=== PATIENT | female | born 1930 | race Hispanic/Latino ===

== ENCOUNTER 2018-05-03 11:32 | Inpatient (IN) | payer BC ==
[~2018-05-03] VITALS: Ht 160 cm; Wt 82.2 kg
[~2018-05-03 11:32] MED LIST: APIX5TAB PO; DEXA4TAB PO; ESOM40CA PO; Folic Acid PO; GABA300S PO; LEVO500T2 PO; LORA10TA7 PO; LOSA50TA2 PO; LUBI24CA2 PO; MEGE400O4 PO; MEMA10TA20 PO; ONDA8TAB5 PO; ROSU10TA27 PO; TRAM-355 PO; TRAZ-185 PO; VORT10TA PO
[2018-05-03 12:27] LABS: BASOPHILS % (AUTO) 0.2 % (0.0-5.0); EOSINOPHILS % (AUTO) 0.2 % (0.0-8.0); HEMATOCRIT 32.4 % (36-48); LYMPHOCYTES % (AUTO) 7.5 % (21.0-51.0); MEAN CORPUSCULAR HEMOGLOBIN 29.9 pg (27.0-33.0); MEAN CORPUSCULAR HGB CONC 32.9 g/dL (32.0-36.0); MEAN CORPUSCULAR VOLUME 90.7 fL (79-99); MONOCYTES % (AUTO) 6.8 % (3.0-13.0); NEUTROPHILS % (AUTO) 85.3 % (40.0-77.0); PLATELET COUNT (AUTO) 205 K/uL (130-400); RED BLOOD CELL COUNT(AUTO) 3.57 MIL/uL (4.00-5.50); RED CELL DISTRIBUTION WIDTH 14.5 % (11.0-15.5); WHITE BLOOD COUNT (AUTO) 6.5 K/uL (4.8-10.8)
[2018-05-03 12:34] LABS: POTASSIUM 3.7 mmol/L (3.5-5.1)
[2018-05-03 12:38] LABS: ALBUMIN 1.8 g/dL (3.5-5.0); BILIRUBIN,TOTAL 0.5 mg/dL (0.2-1.0); TOTAL PROTEIN, SERUM 5.8 g/dL (6.0-8.3)
[2018-05-03 15:41] VITALS: BP 129/61
[2018-05-03 19:00] VITALS: BP 137/64
[2018-05-03] MEDS ORDERED: SUVO10TA PO (19:58)
[2018-05-03] MEDS: DRONABINOL 2.5 MG CAP PO SCH (22:08)
[2018-05-03] MEDS: SODIUM CHLORIDE 0.9% 1000ML 1,000 ML IV SCH (22:09)
[2018-05-03] MEDS: HYDROCODONE/ACETAMINOPHEN 5/325 MG TAB PO PRN (22:12)
[2018-05-03 22:49] LABS: APPEARANCE,URINE Clear (CLEAR); BILIRUBIN,URINE Negative (NEGATIVE); GLUCOSE, URINE (UA) Negative (NEGATIVE); KETONES,URINE Trace mg/dL (NEGATIVE); LEUKOCYTE ESTERASE ,URINE Negative (NEGATIVE); NITRATE,URINE Negative (NEGATIVE); OCCULT BLOOD,URINE Negative (NEGATIVE); PROTEIN,URINE Negative (NEGATIVE)
[2018-05-03 22:59] LABS: COLOR,URINE YELLOW (YELLOW)
[2018-05-03 23:10] LABS: BACTERIA,URINE Rare /HPF (None Seen); RBC,URINE None Seen /HPF (0-1); WBC,URINE None Seen /HPF (0-1)
[2018-05-03 23:11] LABS: MUCUS,URINE Rare LPF (None Seen)
[2018-05-04] VITALS: BP 126/53
[2018-05-04 04:00] VITALS: BP 149/72
[2018-05-04 05:24] LABS: BASOPHILS % (AUTO) 0.3 % (0.0-5.0); EOSINOPHILS % (AUTO) 0.2 % (0.0-8.0); HEMATOCRIT 25.7 % (36-48); LYMPHOCYTES % (AUTO) 17.2 % (21.0-51.0); MEAN CORPUSCULAR HEMOGLOBIN 30.2 pg (27.0-33.0); MEAN CORPUSCULAR HGB CONC 33.5 g/dL (32.0-36.0); MONOCYTES % (AUTO) 8.8 % (3.0-13.0); NEUTROPHILS % (AUTO) 73.5 % (40.0-77.0); PLATELET COUNT (AUTO) 228 K/uL (130-400); RED BLOOD CELL COUNT(AUTO) 2.86 MIL/uL (4.00-5.50); RED CELL DISTRIBUTION WIDTH 14.7 % (11.0-15.5); WHITE BLOOD COUNT (AUTO) 4.5 K/uL (4.8-10.8)
[2018-05-04 05:41] LABS: CREATININE 0.8 mg/dL (0.5-1.5); POTASSIUM 3.6 mmol/L (3.5-5.1)
[2018-05-04] MEDS: PANTOPRAZOLE SODIUM 40 MG TABLET.DR PO SCH (08:22)
[2018-05-04] MEDS: HYDROCODONE/ACETAMINOPHEN 5/325 MG TAB PO PRN ×2 (08:23→22:04)
[2018-05-04] MEDS: LUBIPROSTONE 24 MCG CAP PO SCH ×2 (08:23→16:52)
[2018-05-04] MEDS: FOLIC ACID 1 MG TABLET PO SCH (08:23)
[2018-05-04 08:46] VITALS: BP 151/63
[2018-05-04] MEDS ORDERED: PANTOPRAZOLE SODIUM 40 MG TABLET.DR PO SCH (09:00)
[2018-05-04] MEDS ORDERED: ENOXAPARIN SODIUM 40 MG/0.4 ML SYRINGE SQ SCH (09:00)
[2018-05-04] MEDS: DRONABINOL 2.5 MG CAP PO SCH ×3 (10:24→22:02)
[2018-05-04] MEDS: BACLOFEN 10 MG TABLET PO SCH ×4 (11:40→21:00)
[2018-05-04] MEDS ORDERED: POTASSIUM CHLORIDE 10MEQ/100ML 100 ML IV PRN (12:00)
[2018-05-04] MEDS ORDERED: LIDOCAINE HCL-MPF 1% 2ML VIAL IVP PRN (12:00)
[2018-05-04] MEDS ORDERED: POTASSIUM CHLORIDE 10% ELIXIR 20 MEQ/15 ML UDCUP PO PRN (12:00)
[2018-05-04 12:11] VITALS: BP 142/66
[2018-05-04] MEDS: SODIUM CHLORIDE 0.9% 1000ML 1,000 ML IV SCH (14:08)
[2018-05-04] MEDS: LIDOCAINE 5% TOPICAL PATCH TP SCH (14:09)
[2018-05-04] MEDS: POTASSIUM CHLORIDE 20 MEQ ERTAB PO PRN ×2 (15:13→17:41)
[2018-05-04 16:10] VITALS: BP 134/60
[2018-05-04 19:00] VITALS: BP 160/69
[2018-05-05] VITALS: BP 115/53
[2018-05-05 04:00] VITALS: BP 102/50
[2018-05-05 05:05] LABS: BASOPHILS % (AUTO) 0.2 % (0.0-5.0); EOSINOPHILS % (AUTO) 0.2 % (0.0-8.0); HEMATOCRIT 25.9 % (36-48); LYMPHOCYTES % (AUTO) 16.3 % (21.0-51.0); MEAN CORPUSCULAR HEMOGLOBIN 29.9 pg (27.0-33.0); MEAN CORPUSCULAR HGB CONC 33.5 g/dL (32.0-36.0); MEAN CORPUSCULAR VOLUME 89.4 fL (79-99); NEUTROPHILS % (AUTO) 74.3 % (40.0-77.0); PLATELET COUNT (AUTO) 225 K/uL (130-400); RED CELL DISTRIBUTION WIDTH 14.7 % (11.0-15.5); WHITE BLOOD COUNT (AUTO) 4.9 K/uL (4.8-10.8)
[2018-05-05 05:19] LABS: CREATININE 0.9 mg/dL (0.5-1.5); POTASSIUM 3.5 mmol/L (3.5-5.1)
[2018-05-05] MEDS: SODIUM CHLORIDE 0.9% 1000ML 1,000 ML IV SCH (06:20)
[2018-05-05] MEDS ORDERED: BACLOFEN 10 MG TABLET PO PRN (07:30)
[2018-05-05 08:00] VITALS: BP 141/76
[2018-05-05] MEDS: PANTOPRAZOLE SODIUM 40 MG TABLET.DR PO SCH (09:47)
[2018-05-05] MEDS: FOLIC ACID 1 MG TABLET PO SCH (09:47)
[2018-05-05] MEDS: DRONABINOL 2.5 MG CAP PO SCH ×3 (09:47→21:30)
[2018-05-05] MEDS: LUBIPROSTONE 24 MCG CAP PO SCH ×2 (09:48→16:34)
[2018-05-05] MEDS: LIDOCAINE 5% TOPICAL PATCH TP SCH (09:49)
[2018-05-05] MEDS: HYDROCODONE/ACETAMINOPHEN 5/325 MG TAB PO PRN ×2 (10:54→21:30)
[2018-05-05 11:00] VITALS: BP 130/82
[2018-05-05] MEDS ORDERED: FENTANYL 25 MCG/HR PATCH TD SCH (11:15)
[2018-05-05] MEDS ORDERED: ALPRAZOLAM 0.5 MG TABLET PO PRN (12:15)
[2018-05-05 16:00] VITALS: BP 149/65
[2018-05-05 19:00] VITALS: BP 153/74
[2018-05-06] MEDS: SODIUM CHLORIDE 0.9% 1000ML 1,000 ML IV SCH ×2 (02:51→16:27)
[2018-05-06 04:00] VITALS: BP 127/65
[2018-05-06 06:02] LABS: BASOPHILS % (AUTO) 0.2 % (0.0-5.0); EOSINOPHILS % (AUTO) 0.2 % (0.0-8.0); LYMPHOCYTES % (AUTO) 15.7 % (21.0-51.0); MEAN CORPUSCULAR HEMOGLOBIN 30.4 pg (27.0-33.0); MEAN CORPUSCULAR HGB CONC 34.1 g/dL (32.0-36.0); MEAN CORPUSCULAR VOLUME 89.2 fL (79-99); MONOCYTES % (AUTO) 9.6 % (3.0-13.0); NEUTROPHILS % (AUTO) 74.3 % (40.0-77.0); NUCLEATED RED BLOOD CELLS 0.1 % (0.0-0.19); PLATELET COUNT (AUTO) 250 K/uL (130-400); RED CELL DISTRIBUTION WIDTH 14.8 % (11.0-15.5); WHITE BLOOD COUNT (AUTO) 5.3 K/uL (4.8-10.8)
[2018-05-06 06:13] LABS: CREATININE 0.8 mg/dL (0.5-1.5)
[2018-05-06 06:22] LABS: POTASSIUM 2.9 mmol/L (3.5-5.1)
[2018-05-06] MEDS: POTASSIUM CHLORIDE 20 MEQ ERTAB PO PRN (06:49)
[2018-05-06 07:00] VITALS: BP 145/57
[2018-05-06] MEDS: DRONABINOL 2.5 MG CAP PO SCH ×3 (08:57→21:00)
[2018-05-06] MEDS: FOLIC ACID 1 MG TABLET PO SCH (08:57)
[2018-05-06] MEDS: LUBIPROSTONE 24 MCG CAP PO SCH ×2 (08:57→16:38)
[2018-05-06] MEDS: LIDOCAINE 5% TOPICAL PATCH TP SCH (08:58)
[2018-05-06] MEDS: PANTOPRAZOLE SODIUM 40 MG TABLET.DR PO SCH (08:58)
[2018-05-06] MEDS ORDERED: LIDOCAINE HCL-MPF 1% 2ML VIAL IVP PRN (09:45)
[2018-05-06] MEDS ORDERED: POTASSIUM CHLORIDE 10% ELIXIR 20 MEQ/15 ML UDCUP PO PRN (09:45)
[2018-05-06] MEDS ORDERED: POTASSIUM CHLORIDE 20MEQ/100ML 100 ML IV PRN (09:45)
[2018-05-06] MEDS ORDERED: POTASSIUM CHLORIDE 20 MEQ ERTAB PO PRN (09:45)
[2018-05-06] MEDS: TRAMADOL /APAP 37.5MG/325MG TAB PO PRN ×2 (10:09→23:59)
[2018-05-06] MEDS: POTASSIUM CHLORIDE 20 MEQ ERTAB PO SCH ×3 (10:11→21:01)
[2018-05-06] MEDS: METHYLPREDNISOLONE SOD SUCC 125MG/2ML VIAL IVP SCH ×3 (10:12→23:33)
[2018-05-06 11:00] VITALS: BP 135/69
[2018-05-06 15:00] VITALS: BP 125/62
[2018-05-06] MEDS: PRAMIPEXOLE DI-HCL 0.25 MG TABLET PO SCH ×2 (16:38→21:00)
[2018-05-06 16:47] LABS: APPEARANCE,URINE Turbid (CLEAR); BILIRUBIN,URINE Negative (NEGATIVE); COLOR,URINE Yellow (YELLOW); GLUCOSE, URINE (UA) Negative (NEGATIVE); KETONES,URINE 15 mg/dL (NEGATIVE); LEUKOCYTE ESTERASE ,URINE Moderate (NEGATIVE); NITRATE,URINE Negative (NEGATIVE); OCCULT BLOOD,URINE Negative (NEGATIVE); PROTEIN,URINE POS 1+ (NEGATIVE)
[2018-05-06 17:13] LABS: BACTERIA,URINE Moderate /HPF (None Seen); RBC,URINE None Seen /HPF (0-1)
[2018-05-06 19:15] VITALS: BP 145/88
[2018-05-06 23:13] VITALS: BP 148/67
[2018-05-07 04:00] VITALS: BP 155/85
[2018-05-07 05:32] LABS: CREATININE 0.9 mg/dL (0.5-1.5); POTASSIUM 4.4 mmol/L (3.5-5.1)
[2018-05-07 05:38] LABS: HEMATOCRIT 30.8 % (36-48); MEAN CORPUSCULAR HEMOGLOBIN 29.8 pg (27.0-33.0); MEAN CORPUSCULAR HGB CONC 32.8 g/dL (32.0-36.0); MEAN CORPUSCULAR VOLUME 90.7 fL (79-99); NUCLEATED RED BLOOD CELLS 0.1 % (0.0-0.19); PLATELET COUNT (AUTO) 286 K/uL (130-400); RED CELL DISTRIBUTION WIDTH 14.7 % (11.0-15.5); WHITE BLOOD COUNT (AUTO) 6.9 K/uL (4.8-10.8)
[2018-05-07] MEDS: METHYLPREDNISOLONE SOD SUCC 125MG/2ML VIAL IVP SCH ×2 (06:07→10:10)
[2018-05-07] MEDS: TRAMADOL /APAP 37.5MG/325MG TAB PO PRN ×2 (06:13→10:15)
[2018-05-07 07:00] VITALS: BP 137/55
[2018-05-07] MEDS: DRONABINOL 2.5 MG CAP PO SCH (10:00)
[2018-05-07] MEDS: PRAMIPEXOLE DI-HCL 0.25 MG TABLET PO SCH ×3 (10:00→21:00)
[2018-05-07] MEDS: FOLIC ACID 1 MG TABLET PO SCH (10:01)
[2018-05-07] MEDS: POTASSIUM CHLORIDE 20 MEQ ERTAB PO SCH (10:08)
[2018-05-07] MEDS: PANTOPRAZOLE SODIUM 40 MG TABLET.DR PO SCH (10:09)
[2018-05-07] MEDS: LIDOCAINE 5% TOPICAL PATCH TP SCH (10:10)
[2018-05-07] MEDS: SODIUM CHLORIDE 0.9% 1000ML 1,000 ML IV SCH (10:19)
[2018-05-07] MEDS: LUBIPROSTONE 24 MCG CAP PO SCH ×2 (10:19→17:04)
[2018-05-07 11:23] VITALS: BP 113/64
[2018-05-07] MEDS ORDERED: MORPHINE SULFATE 2 MG/ML 1ML SYG ONE (12:58)
[2018-05-07] MEDS ORDERED: LORAZEPAM 2 MG/ML 1 ML VIAL IVP PRN (14:45)
[2018-05-07] MEDS ORDERED: LORAZEPAM 2 MG/ML 1 ML VIAL ONE (15:19)
[2018-05-07 16:00] VITALS: BP 163/79
[2018-05-07 19:07] VITALS: BP 140/89
[2018-05-07] MEDS ORDERED: ENOXAPARIN SODIUM 30 MG/0.3 ML SQ ONE (20:30)
[2018-05-07] MEDS: MORPHINE SULFATE 2 MG/ML 1ML SYG IM PRN (22:48)
[2018-05-07 22:56] VITALS: BP 161/59
[2018-05-08] MEDS: MORPHINE SULFATE 2 MG/ML 1ML SYG IM PRN ×3 (02:11→15:51)
[2018-05-08 03:20] VITALS: BP 159/78
[2018-05-08] MEDS ORDERED: ONDANSETRON HCL MDV 20ML 2 MG/ML VIAL IVP PRN (05:30)
[2018-05-08 05:49] LABS: HEMATOCRIT 28.7 % (36-48); MEAN CORPUSCULAR HEMOGLOBIN 30.4 pg (27.0-33.0); MEAN CORPUSCULAR HGB CONC 33.9 g/dL (32.0-36.0); MEAN CORPUSCULAR VOLUME 89.7 fL (79-99); PLATELET COUNT (AUTO) 336 K/uL (130-400); RED CELL DISTRIBUTION WIDTH 14.6 % (11.0-15.5); WHITE BLOOD COUNT (AUTO) 9.4 K/uL (4.8-10.8)
[2018-05-08 05:56] LABS: CREATININE 0.8 mg/dL (0.5-1.5); POTASSIUM 3.5 mmol/L (3.5-5.1)
[2018-05-08] MEDS: CEFTRIAXONE SODIUM 1 GM IVP SCH (06:09)
[2018-05-08 07:58] VITALS: BP 143/85
[2018-05-08] MEDS: LIDOCAINE 5% TOPICAL PATCH TP SCH (09:27)
[2018-05-08 11:45] VITALS: BP 163/87
[2018-05-08 16:00] VITALS: BP 138/96
[2018-05-08] MEDS: SODIUM CHLORIDE 0.9% 1000ML 1,000 ML IV SCH (17:32)
[2018-05-08 19:00] VITALS: BP 144/66
[2018-05-09] VITALS: BP 154/96
[2018-05-09] MEDS: MORPHINE SULFATE 2 MG/ML 1ML SYG IM PRN ×3 (02:02→22:55)
[2018-05-09 04:00] VITALS: BP 146/77
[2018-05-09] MEDS: CEFTRIAXONE SODIUM 1 GM IVP SCH (05:17)
[2018-05-09] MEDS: SODIUM CHLORIDE 0.9% 1000ML 1,000 ML IV SCH (05:18)
[2018-05-09 08:00] VITALS: BP 180/80
[2018-05-09] MEDS: POTASSIUM CHLORIDE 20 MEQ ERTAB PO SCH (09:00)
[2018-05-09] MEDS: LIDOCAINE 5% TOPICAL PATCH TP SCH (09:57)
[2018-05-09 12:00] VITALS: BP 146/81
[2018-05-09] MEDS: LORAZEPAM 2 MG/ML 1 ML VIAL IVP SCH ×3 (13:59→22:10)
[2018-05-09] MEDS: MORPHINE SULFATE 2 MG/ML 1ML SYG IM SCH ×2 (14:00→17:34)
[2018-05-09 16:00] VITALS: BP 128/69
[2018-05-09 20:00] VITALS: BP 148/67
[2018-05-09] MEDS: MORPHINE SULFATE 2 MG/ML 1ML SYG IVP SCH (22:00)
[2018-05-09] MEDS ORDERED: MORPHINE SULFATE 2 MG/ML 1ML SYG IVP SCH (22:15)
[2018-05-10 00:08] VITALS: BP 150/76
[2018-05-10] MEDS: SODIUM CHLORIDE 0.9% 1000ML 1,000 ML IV SCH (00:53)
[2018-05-10 04:00] VITALS: BP 154/70
[2018-05-10] MEDS: CEFTRIAXONE SODIUM 1 GM IVP SCH (05:02)
[2018-05-10] MEDS: MORPHINE SULFATE 2 MG/ML 1ML SYG IVP SCH ×3 (05:02→10:14)
[2018-05-10] MEDS: LORAZEPAM 2 MG/ML 1 ML VIAL IVP SCH ×4 (05:20→13:45)
[2018-05-10 08:09] VITALS: BP 142/72
[2018-05-10] MEDS: POTASSIUM CHLORIDE 20 MEQ ERTAB PO SCH (09:00)
[2018-05-10] MEDS: LIDOCAINE 5% TOPICAL PATCH TP SCH (09:25)
== END 2018-05-10 13:55 | disposition hospice, inpatient (51) | DRG 64 ==
LOC: EDH 11:32 → EDHIP 12:50 → 3AH 15:25
PROVIDERS: ADMIT Internal Medicine; ATTEND Internal Medicine
DX: I63.9 Cerebral infarction, unspecified (principal); G93.41 Metabolic encephalopathy; C90.00 Multiple myeloma not having achieved remission; E46 Unspecified protein-calorie malnutrition; M47.816 Spondylosis without myelopathy or radiculopathy, lumbar region; D64.9 Anemia, unspecified; Z66 Do not resuscitate; F03.90 Unspecified dementia, unspecified severity, without behavioral disturbance, psychotic disturbance, mood disturbance, and anxiety; F32.9 Major depressive disorder, single episode, unspecified; G62.9 Polyneuropathy, unspecified; I10 Essential (primary) hypertension; E78.2 Mixed hyperlipidemia; I25.10 Atherosclerotic heart disease of native coronary artery without angina pectoris; I48.91 Unspecified atrial fibrillation; K56.41 Fecal impaction; M48.061 Spinal stenosis, lumbar region without neurogenic claudication; R13.10 Dysphagia, unspecified; R62.7 Adult failure to thrive; Z51.5 Encounter for palliative care; Z74.01 Bed confinement status; Z68.32 Body mass index [BMI] 32.0-32.9, adult; Z88.8 Allergy status to other drugs, medicaments and biological substances; Z79.01 Long term (current) use of anticoagulants; Z90.710 Acquired absence of both cervix and uterus; Z86.711 Personal history of pulmonary embolism; Z85.828 Personal history of other malignant neoplasm of skin; Z85.44 Personal history of malignant neoplasm of other female genital organs; Z85.3 Personal history of malignant neoplasm of breast; Z83.3 Family history of diabetes mellitus; Z82.5 Family history of asthma and other chronic lower respiratory diseases; Z82.49 Family history of ischemic heart disease and other diseases of the circulatory system
CPT/HCPCS: 36415; 70551; 71045; 72148; 72195; 74018; 80048; 80053; 81001; 82550; 85025; 85027; 85651; 97039; A4218; J0696; J1650; J2060; J2930; J7030; Q0167

== ENCOUNTER 2018-05-10 13:56 | Inpatient (IN) | payer OTHER ==
[~2018-05-10] VITALS: Ht 160 cm; Wt 82.2 kg
[~2018-05-10 13:56] MED LIST changes: -LEVO500T2 PO; -LOSA50TA2 PO; +SUVO10TA PO
[2018-05-10] MEDS ORDERED: MORPHINE SULFATE 2 MG/ML 1ML SYG IVP PRN (15:30)
[2018-05-10] MEDS ORDERED: GLYCOPYRROLATE 1 MG/5 ML SYRINGE IV PRN (16:45)
[2018-05-10] MEDS ORDERED: ONDANSETRON HCL 4 MG/2 ML VIAL IVP PRN (16:45)
[2018-05-10] MEDS ORDERED: ALBUTEROL SULFATE 0.083% 2.5 MG/3 ML INH IH PRN (16:45)
[2018-05-10] MEDS ORDERED: BISACODYL 10 MG SUPP.RECT RC PRN (16:45)
[2018-05-10] MEDS ORDERED: ACETAMINOPHEN 650 MG SUPPOSITORY RC PRN (16:45)
[2018-05-10] MEDS ORDERED: LORAZEPAM 2 MG/ML 1 ML VIAL IVP PRN (16:45)
[2018-05-10] MEDS: SODIUM CHLORIDE 0.9% 1000ML 1,000 ML IV SCH ×2 (17:07→22:59)
[2018-05-10] MEDS: LORAZEPAM 2 MG/ML 1 ML VIAL IVP SCH (18:14)
[2018-05-10] MEDS: HYDROMORPHONE PCA 10 MG/50 ML 50 ML IV PRN (18:36)
[2018-05-10 19:44] VITALS: BP 143/71
[2018-05-11] MEDS: LORAZEPAM 2 MG/ML 1 ML VIAL IVP SCH ×4 (00:01→19:23)
[2018-05-11] MEDS: HYDROMORPHONE 1 MG/1 ML AMP IVP PRN (09:36)
[2018-05-11 09:39] VITALS: BP 135/81
[2018-05-11] MEDS: SODIUM CHLORIDE 0.9% 1000ML 1,000 ML IV SCH (19:19)
[2018-05-11] MEDS: ARTIFICAL TEARS SOL 15 ML OU PRN (19:48)
[2018-05-11 19:49] VITALS: BP 152/70
[2018-05-12] MEDS: ARTIFICAL TEARS SOL 15 ML OU PRN ×2 (00:06→06:45)
[2018-05-12] MEDS: BIOTENE MOISTURIZING SPRAY 44.3ML SPRAY MM PRN ×2 (00:06→06:45)
[2018-05-12] MEDS: LORAZEPAM 2 MG/ML 1 ML VIAL IVP SCH ×5 (06:10→22:56)
[2018-05-12] MEDS: GLYCOPYRROLATE 1 MG/5 ML SYRINGE IV PRN ×3 (12:05→22:57)
[2018-05-12] MEDS: SODIUM CHLORIDE 0.9% 1000ML 1,000 ML IV SCH (12:05)
[2018-05-12] MEDS: HYDROMORPHONE PCA 10 MG/50 ML 50 ML IV PRN (13:25)
[2018-05-12] MEDS: HYDROMORPHONE 1 MG/1 ML AMP IVP PRN (13:39)
[2018-05-12 16:43] VITALS: BP 167/67
[2018-05-12 20:40] VITALS: BP 156/71
[2018-05-13] MEDS: GLYCOPYRROLATE 1 MG/5 ML SYRINGE IV PRN ×2 (04:12→09:11)
[2018-05-13] MEDS: LORAZEPAM 2 MG/ML 1 ML VIAL IVP SCH ×3 (06:28→18:17)
[2018-05-13 08:00] VITALS: BP 143/78
[2018-05-13] MEDS: HYDROMORPHONE 1 MG/1 ML AMP IVP PRN ×4 (09:38→22:22)
[2018-05-13] MEDS: GLYCOPYRROLATE 1 MG/5 ML SYRINGE IV SCH ×3 (12:22→20:46)
[2018-05-13 20:00] VITALS: BP 142/68
[2018-05-14] MEDS: GLYCOPYRROLATE 1 MG/5 ML SYRINGE IV SCH ×6 (00:16→21:01)
[2018-05-14] MEDS: LORAZEPAM 2 MG/ML 1 ML VIAL IVP SCH ×4 (00:16→18:10)
[2018-05-14] MEDS: ARTIFICAL TEARS SOL 15 ML OU PRN (00:21)
[2018-05-14] MEDS: BIOTENE MOISTURIZING SPRAY 44.3ML SPRAY MM PRN (00:22)
[2018-05-14] MEDS: HYDROMORPHONE 1 MG/1 ML AMP IVP PRN (06:17)
[2018-05-14 07:54] VITALS: BP 120/57
[2018-05-14 20:00] VITALS: BP 129/71
[2018-05-15] MEDS: GLYCOPYRROLATE 1 MG/5 ML SYRINGE IV SCH ×6 (00:15→20:28)
[2018-05-15] MEDS: LORAZEPAM 2 MG/ML 1 ML VIAL IVP SCH ×4 (00:15→18:03)
[2018-05-15] MEDS: BIOTENE MOISTURIZING SPRAY 44.3ML SPRAY MM PRN (00:18)
[2018-05-15] MEDS: ARTIFICAL TEARS SOL 15 ML OU PRN (00:18)
[2018-05-15] MEDS: HYDROMORPHONE 1 MG/1 ML AMP IVP PRN (03:25)
[2018-05-15] MEDS: HYDROMORPHONE PCA 10 MG/50 ML 50 ML IV PRN (03:25)
[2018-05-15 08:40] VITALS: BP 164/75
[2018-05-15] MEDS: SODIUM CHLORIDE 0.9% 1000ML 1,000 ML IV SCH (08:45)
[2018-05-15] MEDS ORDERED: FUROSEMIDE 10 MG/ML 4ML VIAL IVP SCH (11:30)
[2018-05-15 19:30] VITALS: BP 136/73
[2018-05-16] MEDS: LORAZEPAM 2 MG/ML 1 ML VIAL IVP SCH ×5 (00:05→23:54)
[2018-05-16] MEDS: GLYCOPYRROLATE 1 MG/5 ML SYRINGE IV SCH ×6 (00:06→20:26)
[2018-05-16] MEDS: HYDROMORPHONE PCA 10 MG/50 ML 50 ML IV SCH (05:00)
[2018-05-16] MEDS: HYDROMORPHONE 1 MG/1 ML AMP IVP PRN ×2 (05:26→09:20)
[2018-05-16] MEDS: SODIUM CHLORIDE 0.9% 1000ML 1,000 ML IV SCH (08:45)
[2018-05-16 08:50] VITALS: BP 152/66
[2018-05-16] MEDS: FUROSEMIDE 10 MG/ML 4ML VIAL IVP SCH ×2 (13:42→20:26)
[2018-05-16] MEDS: SCOPOLAMINE HYDROBROMIDE 1 EACH ADH..PATCH TD SCH (13:42)
[2018-05-16 20:00] VITALS: BP 120/49
[2018-05-17] MEDS: GLYCOPYRROLATE 1 MG/5 ML SYRINGE IV SCH ×6 (00:14→20:58)
[2018-05-17] MEDS: HYDROMORPHONE PCA 10 MG/50 ML 50 ML IV SCH ×2 (00:27→17:08)
[2018-05-17] MEDS: HYDROMORPHONE 1 MG/1 ML AMP IVP PRN (04:36)
[2018-05-17] MEDS: FUROSEMIDE 10 MG/ML 4ML VIAL IVP SCH ×2 (04:58→12:15)
[2018-05-17] MEDS: LORAZEPAM 2 MG/ML 1 ML VIAL IVP SCH ×2 (06:06→12:15)
[2018-05-17 08:00] VITALS: BP 112/46
[2018-05-17] MEDS: SODIUM CHLORIDE 0.9% 1000ML 1,000 ML IV SCH (08:45)
[2018-05-17 19:20] VITALS: BP 132/78
[2018-05-18] MEDS: FUROSEMIDE 10 MG/ML 4ML VIAL IVP SCH ×4 (01:32→21:32)
[2018-05-18] MEDS: GLYCOPYRROLATE 1 MG/5 ML SYRINGE IV SCH ×6 (01:32→21:32)
[2018-05-18 08:00] VITALS: BP 113/46
[2018-05-18] MEDS: SODIUM CHLORIDE 0.9% 1000ML 1,000 ML IV SCH (08:45)
[2018-05-18] MEDS: HYDROMORPHONE PCA 10 MG/50 ML 50 ML IV SCH (10:24)
[2018-05-18 20:24] VITALS: BP 134/62
[2018-05-19] MEDS: GLYCOPYRROLATE 1 MG/5 ML SYRINGE IV SCH ×7 (01:19→23:45)
[2018-05-19] MEDS: FUROSEMIDE 10 MG/ML 4ML VIAL IVP SCH ×3 (05:46→20:43)
[2018-05-19 08:00] VITALS: BP 103/55
[2018-05-19] MEDS: HYDROMORPHONE PCA 10 MG/50 ML 50 ML IV SCH (08:07)
[2018-05-19] MEDS: SODIUM CHLORIDE 0.9% 1000ML 1,000 ML IV SCH (08:45)
[2018-05-19] MEDS ORDERED: LORAZEPAM 2 MG/ML 1 ML VIAL IVP PRN (10:45)
[2018-05-19] MEDS: SCOPOLAMINE HYDROBROMIDE 1 EACH ADH..PATCH TD SCH (13:00)
[2018-05-19] MEDS: HYDROMORPHONE 1 MG/1 ML AMP IVP PRN (17:57)
[2018-05-19 19:40] VITALS: BP 115/72
[2018-05-20] MEDS: HYDROMORPHONE PCA 10 MG/50 ML 50 ML IV SCH ×2 (01:06→18:40)
[2018-05-20] MEDS: HYDROMORPHONE 1 MG/1 ML AMP IVP PRN ×2 (01:15→12:30)
[2018-05-20] MEDS: GLYCOPYRROLATE 1 MG/5 ML SYRINGE IV SCH ×5 (04:17→20:22)
[2018-05-20] MEDS: FUROSEMIDE 10 MG/ML 4ML VIAL IVP SCH ×3 (04:59→20:22)
[2018-05-20 08:00] VITALS: BP 110/52
[2018-05-20] MEDS: SODIUM CHLORIDE 0.9% 1000ML 1,000 ML IV SCH (08:45)
[2018-05-20 19:13] VITALS: BP 111/46
[2018-05-21] MEDS: GLYCOPYRROLATE 1 MG/5 ML SYRINGE IV SCH ×4 (00:29→12:17)
[2018-05-21] MEDS: FUROSEMIDE 10 MG/ML 4ML VIAL IVP SCH ×2 (04:23→12:30)
[2018-05-21 08:00] VITALS: BP 114/54
[2018-05-21] MEDS: SODIUM CHLORIDE 0.9% 1000ML 1,000 ML IV SCH (08:45)
[2018-05-21] MEDS: HYDROMORPHONE PCA 10 MG/50 ML 50 ML IV SCH (11:30)
[2018-05-21] MEDS: HYDROMORPHONE 1 MG/1 ML AMP IVP PRN (14:50)
[2018-05-21] MEDS ORDERED: LORAZEPAM 2 MG/ML 1 ML VIAL IVP SCH (15:15)
== END 2018-05-21 15:20 | disposition expired | DRG 64 ==
LOC: 3AH 13:56
PROVIDERS: ADMIT Internal Medicine; ATTEND Internal Medicine
DX: I63.9 Cerebral infarction, unspecified (principal); E43 Unspecified severe protein-calorie malnutrition; J18.9 Pneumonia, unspecified organism; G93.41 Metabolic encephalopathy; C90.00 Multiple myeloma not having achieved remission; D64.9 Anemia, unspecified; K56.41 Fecal impaction; R13.10 Dysphagia, unspecified; F32.9 Major depressive disorder, single episode, unspecified; E83.52 Hypercalcemia; G89.29 Other chronic pain; E78.5 Hyperlipidemia, unspecified; I25.10 Atherosclerotic heart disease of native coronary artery without angina pectoris; I10 Essential (primary) hypertension; G62.9 Polyneuropathy, unspecified; F03.90 Unspecified dementia, unspecified severity, without behavioral disturbance, psychotic disturbance, mood disturbance, and anxiety; Z66 Do not resuscitate; M51.36 Other intervertebral disc degeneration, lumbar region; M47.816 Spondylosis without myelopathy or radiculopathy, lumbar region; Z51.5 Encounter for palliative care; I73.9 Peripheral vascular disease, unspecified; I48.0 Paroxysmal atrial fibrillation; Z68.32 Body mass index [BMI] 32.0-32.9, adult; Z85.44 Personal history of malignant neoplasm of other female genital organs; Z79.01 Long term (current) use of anticoagulants; Z86.73 Personal history of transient ischemic attack (TIA), and cerebral infarction without residual deficits; Z85.3 Personal history of malignant neoplasm of breast; Z86.711 Personal history of pulmonary embolism; Z83.3 Family history of diabetes mellitus; Z88.8 Allergy status to other drugs, medicaments and biological substances; Z92.3 Personal history of irradiation; Z92.21 Personal history of antineoplastic chemotherapy; Z82.5 Family history of asthma and other chronic lower respiratory diseases; Z82.49 Family history of ischemic heart disease and other diseases of the circulatory system; Z80.8 Family history of malignant neoplasm of other organs or systems
CPT/HCPCS: J1170; J1940; J2060; J3490; J7030